=== PATIENT | female | born 1990 | race Caucasian/White ===

== ENCOUNTER 2016-10-20 11:05 | Emergency (ER) | payer MEDICAID ==
[~2016-10-20] VITALS: Ht 152.4 cm; Wt 41.1 kg
[2016-10-20 11:12] VITALS: BP 106/71; PULSE 97; RESP 16; TEMP 98.3; O2SAT 98
[2016-10-20] MEDS ORDERED: KETOROLAC TROMETHAMINE 60 MG/2 ML (IM) VIAL IM ONE (12:15)
--- NOTE | 2016-10-20 12:23 | PD ---
HPI Chief Complaint: Musculoskeletal Complaint Time Seen by Provider: 12:19 Travel History International Travel<30 days: No Contact w/Intl Traveler<30days: No Traveled to known affect area: No History of Present Illness HPI 26-year-old female that presents to the ED for evaluation of left chest discomfort. Per patient she's had this for almost a week now. Per patient he comes and goes but is worse with deep breaths and cough. Also with movement. She denies any chest trauma. She denies any recent exercise increase or any recent heavy lifting. She states that movement seems to make her worse. Per patient the pain at the moment and then exacerbated 7 out of 10. Otherwise his 4 out of 10. Denies any bowel movement issues. Denies significant for control. Denies positive . No vaginal discharge or bleeding. Denies any cough or runny nose Symptoms. Denies any fevers chills or sweats. No recent travel. Allergy to codeine. Nothing seems to make the pain better other than not moving or coughing. PFSH Past Medical History Diminished Hearing: No Thyroid Disease: Yes Tetanus Vaccination: Unknown Influenza Vaccination: No ?: Not LMP: 09/23/16 Past Surgical History Surgical History: No Previous Surgery Social History Alcohol Use: Yes (occ) Tobacco Use: No Substance Use: No Allergies-Medications (Allergen,Severity, Reaction): Coded Allergies: Codeine (Verified Allergy, Intermediate, n/v, 10/20/16) Reported Meds & Prescriptions Reported Meds & Active Scripts Active No Active Prescriptions or Reported Medications Review of Systems General / Constitutional: No: Fever, Chills, Weight Gain, Weight Loss, Other Eyes: No: Diploplia, Blurred Vision, Photophobia, Drainage, Redness, Foreign Body Sensation, Pain, Tearing, Blind Spots, Visual changes, Blindness, Other HENT: No: Headaches, Vertigo, Lightheadedness, Sore Throat, Rhinitis, Rhinorrhea, Congestion, Nosebleed, Neck Stiffness, Neck Pain, Masses, Gingival Bleeding, Dental Difficulties, Ear Discharge, Earache, Other Cardiovascular: Positive: Chest Pain or Discomfort, No: Palpitations, Irregular Rhythm, Tachycardia, Diaphoresis, Syncope, Dyspnea on exertion, Varicosities, Edema, Cyanosis, Varicosities, Phlebitis, Claudication, Other Respiratory: No: Cough, Shortness of Breath, Wheezing, Sneezing, Orthopnea, Hemoptysis, Stridor, Night Sweats, Pleuritic Pain, Other Gastrointestinal: No: Nausea, Vomiting, Diarrhea, Abdominal Pain, Hematemesis, Hematochezia, Constipation, Changes in Bowel Habits, Indigestion, Dysphagia, Loss of Appetite, Other Genitourinary: No: Urgency, Frequency, Dysuria, Nocturia, Hematuria, Decreased Urinary Output, Oliguria, Hesitancy, Dribbling, Incontinence, Pelvic Pain, Flank Pain, Dyspareunia, Discharge, Dysmenorrhea, Menorrhagia, Metorrhagia, Vaginal Bleeding, Other Musculoskeletal: Positive: Pain, No: Myalgias, Arthralgias, Limited ROM, Weakness, Cramping, Edema, Atrophy, Other Skin: No Rash, No Itching, No Dryness, No Lumps, No Hives, No Change in Pigmentation, No Change in nails, No Alopecia, No Lesions, No Breast Lumps, No Breast Tenderness, No Breast Swelling, No Other Neurologic: No: Weakness, Dizziness, Syncope, Focal Abnormalities, Coordination Problem, Tremor, Ataxia, Headache, Change in Mentation, Slurred Speech, Paresthesia, Incontinence, Seizures, Sensory Disturbance, Other Psychiatric: No: Anxiety, Depression, Suicidal Ideations, Disorder of Thought, Mood Disorder, Substance Abuse, Homicidal Ideation, Other Endocrine: No: Heat Intolerance, Cold Intolerance, Polyuria, Polydipsia, Other Hematologic/Lymphatic: No: Easy Bruising, Lymph Node Enlargement, Other Physical Exam Narrative GENERAL: SKIN: Warm and dry. Seen with female nurse present. No sign of mass or lymphadenopathy on the upper aspect of the chest and breast. HEAD: Atraumatic. Normocephalic. EYES: Pupils equal and round. No scleral icterus. No injection or drainage. ENT: No nasal bleeding or discharge. Mucous membranes pink and moist. NECK: Trachea midline. No JVD. CARDIOVASCULAR: Regular rate and rhythm. No murmurs, S3, S4. Chest pressure producible with touch as well as with range of motion of the left upper arm. RESPIRATORY: No accessory muscle use. Clear to auscultation. Breath sounds equal bilaterally. GASTROINTESTINAL: Abdomen soft, non-tender, nondistended. Hepatic and splenic margins not palpable. MUSCULOSKELETAL: Extremities without clubbing, cyanosis, or edema. No obvious deformities. Full range of motion of the upper and lower extremities bilaterally. 2+ pulses bilaterally. NEUROLOGICAL: Awake and alert. No obvious cranial nerve deficits. Motor grossly within normal limits. Five out of 5 muscle strength in the arms and legs. Normal speech. PSYCHIATRIC: Appropriate mood and affect; insight and judgment normal. Data Data Last Documented VS Vital Signs Date Time Temp Pulse Resp B/P Pulse Ox O2 Delivery O2 Flow Rate FiO2 10/20/16 11:59 16 10/20/16 11:12 98.3 97 106/71 98 Orders Chest, Single Ap (10/20/16 ) Ed Urine Pregnancytest Poc (10/20/16 12:11) Ketorolac Inj (Toradol Inj) (10/20/16 12:15) MDM Medical Decision Making Medical Screen Exam Complete: Yes Emergency Medical Condition: Yes Medical Record Reviewed: Yes Interpretation(s) EKG shows sinus rhythm with no sign of acute ischemia or arrhythmia read by me and attending. CXR negative for acute disease Differential Diagnosis Chest pain versus atypical chest pain versus costochondritis versus muscle strain Narrative Course 26-year-old female that presents to the ED for evaluation of left-sided chest pain. Patient was properly examined and was found to have signs and symptoms consistent appears to be left-sided chest pain. EKG shows sinus rhythm with no sign of acute ischemia or arrhythmia throughout the me and attending. Chest x- ray was circular in sign of lung disease causing the chest discomfort. Patient' s ago with plan. Chest x-ray was negative for acute disease. Patient was reassured. From history and physical this appears to be costochondritis. I recommend close follow-up with PCP. Warm compresses. See ED worsening symptoms. She was given a prescription for diclofenac sodium and Flexeril to use as needed. Diagnosis Primary Impression: Acute costochondritis Patient Instructions: General Instructions Additional Instructions: Take medications as prescribed. Follow-up with PCP. See ED for any worsening symptoms. Do not drink or drive while taking pain medication. Apply ice or heat as needed for pain Med/Other Pt SpecificInfo: Prescription(s) given Scripts No Active Prescriptions or Reported Meds Disposition: 01 DISCHARGE HOME Condition: Stable Adelso Lewis Oct 20, 2016 12:23
[2016-10-20] MEDS ORDERED: DICL75TA PO (12:25)
[2016-10-20] MEDS ORDERED: CYCL5TAB PO (12:25)
--- NOTE | 2016-10-20 12:40 | RADHPO ---
EXAM DATE/TIME: 10/20/2016 12:21 [facility] COMPARISON: No previous studies available for comparison. INDICATIONS : Chest pain for 1 week MEDICAL HISTORY : None. SURGICAL HISTORY : None. ENCOUNTER: Initial ACUITY: 1 week PAIN SCORE: 7/10 LOCATION: Bilateral chest TECH NOTE: Denies , MICHELLE Gunn MR#[id number] :91 Exam date/desc:October 20, 2016CH EST SINGLE AP FINDINGS: A single view of the chest demonstrates the lungs to be symmetrically aerated without evidence of mas s, infiltrate or effusion. The cardiomediastinal contours are unremarkable. Osseous structures are intact. CONCLUSION: No acute disease. Renny Conway MD on October 20, 2016 at 12:38 Board Certified Radiologist. This report was verified electronically.
--- NOTE | 2016-10-21 15:07 | EKG ---
Date Performed: 10/20/2016 Time Performed: 11:12:12 PTAGE: 26 years EKG: Sinus rhythm . rSr'(V1) - probable normal variant Normal ECG NO PREVIOUS TRACING DOCTOR: Mookie Dye Interpretating Date/Time 10/21/2016 15:06:41
[2016-12-06] MEDS ORDERED: PREN1MIS19 (12:15)
== END 2016-10-20 12:51 | disposition home or self-care (01) ==
LOC: PHED 11:05 → PHEFT 12:51
DX: M94.0 Chondrocostal junction syndrome [Tietze] (principal); E07.9 Disorder of thyroid, unspecified
CPT/HCPCS: 71010; 84703; 93005; 96372; 99284; J1885

== ENCOUNTER 2016-11-21 21:19 | Emergency (ER) | payer MEDICAID ==
[~2016-11-21] VITALS: Ht 152.4 cm; Wt 43.0 kg
[~2016-11-21 21:19] MED LIST: CYCL5TAB PO; DICL75TA PO
[2016-11-21 21:30] VITALS: BP 105/59; PULSE 63; RESP 18; TEMP 98.1; O2SAT 100
[2016-11-22] MEDS ORDERED: MACR100C2 PO (11:29)
[2016-11-22] MEDS ORDERED: ACET500T3 PO (11:29)
[2016-12-06] MEDS ORDERED: PREN1MIS19 (12:15)
== END 2016-11-21 23:45 | disposition left against medical advice (07) ==
LOC: PHED 21:19
DX: O26.90 Pregnancy related conditions, unspecified, unspecified trimester (principal); N93.9 Abnormal uterine and vaginal bleeding, unspecified
CPT/HCPCS: 99281

== ENCOUNTER 2016-11-22 09:09 | Emergency (ER) | payer MEDICAID ==
[~2016-11-22] VITALS: Ht 152.4 cm; Wt 42.0 kg
[2016-11-22 09:17] VITALS: BP 93/53; PULSE 63; RESP 16; TEMP 98.9; O2SAT 100
--- NOTE | 2016-11-22 09:39 | PD ---
HPI Chief Complaint: Related Problem Time Seen by Provider: 09:22 Travel History International Travel<30 days: No Contact w/Intl Traveler<30days: No Traveled to known affect area: No History of Present Illness HPI 26yo F who is 6 weeks 2 days per LMP of 10/09/16 presents to the ED with c/o vaginal spotting and occasional cramping since yesterday. Denies any fever, chest pain, sob, n/v, abdominal pain. Pt has not seen an OBGYN or had ultrasound for this yet. Had and 2 children but no ectopic pregnancies. PFSH Past Medical History Hx Anticoagulant Therapy: No Diabetes: No Diminished Hearing: No Thyroid Disease: Yes ?: Social History Alcohol Use: Yes (occ) Tobacco Use: No Substance Use: No Allergies-Medications (Allergen,Severity, Reaction): Coded Allergies: Codeine (Verified Allergy, Intermediate, n/v, 11/22/16) Percocet (Verified Allergy, Intermediate, Rash, 11/22/16) Reported Meds & Prescriptions Reported Meds & Active Scripts Active Acetaminophen 500 Mg Tab 500 Mg PO Q6H PRN Macrobid (Nitrofurantoin Monoh/Nitrofur Macro) 100 Mg Cap 100 Mg PO BID 5 Days Review of Systems Except as stated in HPI: all other systems reviewed are Neg Physical Exam Narrative GENERAL: 26yo F not in distress. SKIN: Focused skin assessment warm/dry. HEAD: Atraumatic. Normocephalic. CARDIOVASCULAR: Regular rate and rhythm. No murmur appreciated. RESPIRATORY: No accessory muscle use. Clear to auscultation. Breath sounds equal bilaterally. GASTROINTESTINAL: Abdomen soft, non-tender, nondistended. No rebound tenderness or guarding. PELVIC: No blood. No discharge. No CMT or adnexal tenderness bilaterally. MUSCULOSKELETAL: No obvious deformities. No clubbing. No cyanosis. No edema. NEUROLOGICAL: Awake and alert. No obvious cranial nerve deficits. Motor grossly within normal limits. Normal speech. PSYCHIATRIC: Appropriate mood and affect; insight and judgment normal. Data Data Last Documented VS Vital Signs Date Time Temp Pulse Resp B/P Pulse Ox O2 Delivery O2 Flow Rate FiO2 11/22/16 12:22 60 16 106/59 100 11/22/16 09:17 98.9 Orders Beta Hcg (Quant/Titer) (11/22/16 09:34) Complete Blood Count With Diff (11/22/16 09:34) Basic Metabolic Panel (Bmp) (11/22/16 09:34) Gc And Chlamydia Pcr (11/22/16 09:34) Type And Screen (11/22/16 09:34) Wet Prep Profile (11/22/16 09:34) Urinalysis - C+S If Indicated (11/22/16 09:34) Ed Poc Ultrasound (11/22/16 09:34) Urine Culture (11/22/16 09:55) Nitrofurantoin Monohyd Macrocr (Macrobid (11/22/16 11:00) Labs Laboratory Tests Test 11/22/16 11/22/16 11/22/16 09:55 10:00 10:35 Urine Collection Type CLEAN CATCH Urine Color YELLOW Urine Turbidity CLEAR Urine pH 6.5 Urine Specific [place] 1.023 Urine Protein TRACE mg/dL Urine Glucose (UA) NEG mg/dL Urine Ketones NEG mg/dL Urine Occult Blood SMALL Urine Nitrite NEG Urine Bilirubin NEG Urine Leukocyte Esterase NEG Urine RBC 4-9 /hpf Urine WBC 0-2 /hpf Urine Squamous Epithelial > 8 /hpf Cells Urine Bacteria MOD /hpf Microscopic Urinalysis Comment CULTURE INDICATED Urine Collection Time 09:55 White Blood Count 6.0 TH/MM3 Red Blood Count 4.14 MIL/MM3 Hemoglobin 12.8 GM/DL Hematocrit 38.3 % Mean Corpuscular Volume 92.3 FL Mean Corpuscular Hemoglobin 31.0 PG Mean Corpuscular Hemoglobin 33.6 % Concent Red Cell Distribution Width 13.5 % Platelet Count 155 TH/MM3 Mean Platelet Volume 8.1 FL Neutrophils (%) (Auto) 64.8 % Lymphocytes (%) (Auto) 27.8 % Monocytes (%) (Auto) 5.9 % Eosinophils (%) (Auto) 1.2 % Basophils (%) (Auto) 0.3 % Neutrophils # (Auto) 3.8 TH/MM3 Lymphocytes # (Auto) 1.7 TH/MM3 Monocytes # (Auto) 0.4 TH/MM3 Eosinophils # (Auto) 0.1 TH/MM3 Basophils # (Auto) 0.0 TH/MM3 CBC Comment DIFF FINAL Differential Comment Sodium Level 140 MEQ/L Potassium Level 3.6 MEQ/L Chloride Level 105 MEQ/L Carbon Dioxide Level 27.3 MEQ/L Anion Gap 8 MEQ/L Blood Urea Nitrogen 6 MG/DL Creatinine 0.61 MG/DL Estimat Glomerular Filtration 120 ML/MIN Rate Random Glucose 63 MG/DL Calcium Level 8.5 MG/DL Human Chorionic Gonadotropin, 264932 MIU/ML Quant Blood Type O POSITIVE Antibody Screen NEGATIVE Blood Bank Comment Clue Cells (Wet Prep) NONE SEEN Vaginal Trichomonas (Wet Prep) NONE SEEN Vaginal Yeast (Wet Prep) NONE SEEN MDM Medical Decision Making Medical Screen Exam Complete: Yes Emergency Medical Condition: Yes Interpretation(s) Laboratory Tests Test 11/22/16 11/22/16 11/22/16 09:55 10:00 10:35 Urine Collection Type CLEAN CATCH Urine Color YELLOW (YELLW/STRAW) Urine Turbidity CLEAR (CLEAR) Urine pH 6.5 (5.0-8.5) Urine Specific [place] 1.023 (1.002-1.035) Urine Protein TRACE mg/dL (NEG-TRACE) Urine Glucose (UA) NEG mg/dL (NEG) Urine Ketones NEG mg/dL (NEG) Urine Occult Blood SMALL (NEG) Urine Nitrite NEG (NEG) Urine Bilirubin NEG (NEG) Urine Leukocyte Esterase NEG (NEG) Urine RBC 4-9 /hpf (0-3) Urine WBC 0-2 /hpf (0-5) Urine Squamous Epithelial > 8 /hpf (0-5) Cells Urine Bacteria MOD /hpf (NONE) Microscopic Urinalysis Comment CULTURE INDICATED Urine Collection Time 09:55 White Blood Count 6.0 TH/MM3 (4.0-11.0) Red Blood Count 4.14 MIL/MM3 (4.00-5.30) Hemoglobin 12.8 GM/DL (11.6-15.3) Hematocrit 38.3 % (35.0-46.0) Mean Corpuscular Volume 92.3 FL (80.0-100.0) Mean Corpuscular Hemoglobin 31.0 PG (27.0-34.0) Mean Corpuscular Hemoglobin 33.6 % Concent (32.0-36.0) Red Cell Distribution Width 13.5 % (11.6-17.2) Platelet Count 155 TH/MM3 (150-450) Mean Platelet Volume 8.1 FL (7.0-11.0) Neutrophils (%) (Auto) 64.8 % (16.0-70.0) Lymphocytes (%) (Auto) 27.8 % (9.0-44.0) Monocytes (%) (Auto) 5.9 % (0.0-8.0) Eosinophils (%) (Auto) 1.2 % (0.0-4.0) Basophils (%) (Auto) 0.3 % (0.0-2.0) Neutrophils # (Auto) 3.8 TH/MM3 (1.8-7.7) Lymphocytes # (Auto) 1.7 TH/MM3 (1.0-4.8) Monocytes # (Auto) 0.4 TH/MM3 (0-0.9) Eosinophils # (Auto) 0.1 TH/MM3 (0-0.4) Basophils # (Auto) 0.0 TH/MM3 (0-0.2) CBC Comment DIFF FINAL Differential Comment Sodium Level 140 MEQ/L (136-145) Potassium Level 3.6 MEQ/L (3.5-5.1) Chloride Level 105 MEQ/L (98-107) Carbon Dioxide Level 27.3 MEQ/L (21.0-32.0) Anion Gap 8 MEQ/L (5-15) Blood Urea Nitrogen 6 MG/DL (7-18) Creatinine 0.61 MG/DL (0.50-1.00) Estimat Glomerular Filtration 120 ML/MIN Rate (>89) Random Glucose 63 MG/DL (74-106) Calcium Level 8.5 MG/DL (8.5-10.1) Human Chorionic Gonadotropin, 198322 MIU/ML Quant (0-5) Clue Cells (Wet Prep) NONE SEEN (NONE) Vaginal Trichomonas (Wet Prep) NONE SEEN (NONE) Vaginal Yeast (Wet Prep) NONE SEEN (NONE) Differential Diagnosis Threatened vs. subchorionic hemorrhage vs. ectopic Narrative Course 26yo F with vaginal spotting since yesterday. Pt had intermittent cramping but no tenderness on abdominal exam. Pelvic exam unremarkable with no blood in vaginal vault. Labs reviewed, no leukocytosis. H/H stable. bHCG [id number]. Bedside ultrasound showed intrauterine with +FHR. UA showed moderate bacteria and squamous >8. This is likely contamination but since pt is with cover with macrobid. Pt given first dose here. Wet prep negative. Pt has no abdominal pain so did not want any pain medication. Blood type O+, No rhogam needed. Procedures Procedure Narrative Emergency Department Pelvic ultrasound was performed with patient consent. The curvilinear probe was used in the transverse and sagittal views within the suprapubic region revealing single intrauterine . heart rate was 160bpm. Diagnosis Primary Impression: Vaginal spotting Patient Instructions: General Instructions Departure Forms: Tests/Procedures Additional Instructions: Please follow up with your OBGYN at the earliest appointment possible. Please return to the ED if symptoms worsen. Med/Other Pt SpecificInfo: Prescription(s) given Scripts Acetaminophen 500 Mg [id number] Mg PO Q6H PRN (PAIN SCALE 1 TO 5) #20 TAB Ref 0 Prov:Missy Thomas DO 11/22/16 Nitrofurantoin Monohydrate Macrocrystals (Macrobid)100 Mg [id number] Mg PO BID 5 Days Ref 0 Prov:Missy Thomas DO 11/22/16 Missy Thomas DO Nov 22, 2016 09:39
[2016-11-22 10:12] LABS: AUTOMATED NEUTROPHIL # 3.8 TH/MM3 (1.8-7.7); BASOPHIL % 0.3 % (0.0-2.0); EOSINOPHIL # 0.1 TH/MM3 (0-0.4); EOSINOPHIL % 1.2 % (0.0-4.0); HEMATOCRIT 38.3 % (35.0-46.0); HEMO FLAGS DIFF FINAL; LYMPH % 27.8 % (9.0-44.0); LYMPHOCYTE # 1.7 TH/MM3 (1.0-4.8); MEAN CELL VOLUME 92.3 FL (80.0-100.0); MEAN CORPUSCULAR HGB CONC 33.6 % (32.0-36.0); MONO % 5.9 % (0.0-8.0); NEUT % 64.8 % (16.0-70.0); PLATELET COUNT 155 TH/MM3 (150-450); RED BLOOD COUNT 4.14 MIL/MM3 (4.00-5.30); RED CELL DISTRIBUTION WIDTH 13.5 % (11.6-17.2)
[2016-11-22 10:16] LABS: BLOOD, URINE SMALL (NEG); GLUCOSE,URINE NEG (NEG); KETONE, URINE NEG (NEG); NITRITE,URINE NEG (NEG); PH, URINE 6.5 (5.0-8.5)
[2016-11-22 10:19] LABS: POTASSIUM 3.6 MEQ/L (3.5-5.1)
[2016-11-22 10:22] LABS: BICARBONATE 27.3 MEQ/L (21.0-32.0)
[2016-11-22 10:22] LABS: METHOD OF COLLECTION CLEAN CATCH
[2016-11-22 10:23] LABS: BACTERIA, URINE MOD /hpf; COMMENT (UR) CULTURE INDICATED; CULTURE IF INDICATED CULTURE INDICATED; SQUAMOUS EPITHELIAL CELL URINE > 8 /hpf (0-5); URINE COLOR YELLOW (YELLW/STRAW); WBC, URINE 0-2 /hpf (0-5)
[2016-11-22] MEDS ORDERED: NITROFURANTOIN MONOHYD MACROCR 100 MG CAP PO ONE (11:00)
[2016-11-22] MEDS ORDERED: ACET500T3 PO (11:29)
[2016-11-22] MEDS ORDERED: MACR100C2 PO (11:29)
[2016-11-22 12:22] VITALS: BP 106/59
[2016-11-22 15:34] LABS: CHLAMYDIA PCR NOT DETECTED (NOT DETECT); NEISSERIA PCR NOT DETECTED (NOT DETECT)
[2016-12-06] MEDS ORDERED: PREN1MIS19 (12:15)
== END 2016-11-22 12:24 | disposition home or self-care (01) ==
LOC: PHED 09:09
DX: O26.851 Spotting complicating pregnancy, first trimester (principal); R82.99 Other abnormal findings in urine; B96.89 Other specified bacterial agents as the cause of diseases classified elsewhere; E07.9 Disorder of thyroid, unspecified; Z3A.01 Less than 8 weeks gestation of pregnancy
CPT/HCPCS: 80048; 81001; 84702; 85025; 86850; 86900; 86901; 87086; 87210; 87491; 87591; 99284

== ENCOUNTER → 2016-12-19 | Outpatient (CLI) | payer MEDICAID ==
[~2016-12-19] MED LIST changes: -CYCL5TAB PO; -DICL75TA PO; +PREN1MIS19
== END ==
LOC: HPND 09:37
PROVIDERS: ATTEND Family Medicine
DX: O26.841 Uterine size-date discrepancy, first trimester (principal); Z3A.12 12 weeks gestation of pregnancy
CPT/HCPCS: 76801